=== PATIENT | male | born 1990 | race Caucasian/White ===

== ENCOUNTER 2020-01-12 12:34 | Emergency (ER) | payer MEDICAID ==
[~2020-01-12] VITALS: Ht 165.1 cm; Wt 68.2 kg
[2020-01-12 12:42] VITALS: BP 125/71
[2020-01-12] MEDS ORDERED: ketorolac trometh inj. 60 MG/2 ML VIAL IM ONE (13:25)
== END 2020-01-12 14:09 | disposition home or self-care (01) ==
LOC: ER 12:35
DX: M54.30 Sciatica, unspecified side (principal); M54.89 Other dorsalgia
CPT/HCPCS: 96372; 99283; J1885

== ENCOUNTER 2020-07-18 09:09 | Emergency (ER) | payer MEDICAID ==
[~2020-07-18] VITALS: Ht 167.6 cm; Wt 61.2 kg
[2020-07-18 09:22] VITALS: BP 122/74
[2020-07-18] MEDS ORDERED: ketorolac tromethamine 15mg/ml inj. IM ONE (09:45)
[2020-07-18] MEDS ORDERED: IBUP-1984 PO (09:45)
[2020-07-18] MEDS ORDERED: orphenadrine citrate 60mg/2ml inj. IM ONE (09:45)
== END 2020-07-18 09:59 | disposition home or self-care (01) ==
LOC: ER 09:10
DX: G89.29 Other chronic pain (principal); M54.5 Low back pain; Z79.899 Other long term (current) drug therapy
CPT/HCPCS: 96372; 99284; J1885; J2360

== ENCOUNTER 2020-10-26 13:50 | Emergency (ER) | payer MEDICAID ==
[~2020-10-26] VITALS: Ht 317.5 cm; Wt 59.1 kg
[2020-10-26 14:02] VITALS: BP 127/86
== END 2020-10-26 15:29 | disposition home or self-care (01) ==
LOC: ER 13:51
DX: U07.1 COVID-19 (principal); J02.9 Acute pharyngitis, unspecified; R06.02 Shortness of breath; R19.7 Diarrhea, unspecified; G89.29 Other chronic pain
CPT/HCPCS: 87635; 99283; C9803

== ENCOUNTER 2022-04-08 10:13 | Emergency (ER) | payer MEDICAID ==
[~2022-04-08] VITALS: Ht 165.1 cm; Wt 55.0 kg
[2022-04-08 10:22] VITALS: BP 132/90
[2022-04-08] MEDS ORDERED: ORPH100T2 PO (11:03)
[2022-04-08] MEDS ORDERED: ketorolac trometh inj. 60 MG/2 ML VIAL IM ONE (11:05)
[2022-04-08] MEDS ORDERED: orphenadrine citrate 60mg/2ml inj. IM ONE (11:05)
== END 2022-04-08 11:40 | disposition home or self-care (01) ==
LOC: ER 10:14
DX: S39.012A Strain of muscle, fascia and tendon of lower back, initial encounter (principal); M62.830 Muscle spasm of back; F17.200 Nicotine dependence, unspecified, uncomplicated; X58.XXXA Exposure to other specified factors, initial encounter; Y93.89 Activity, other specified; Y92.89 Other specified places as the place of occurrence of the external cause; Y99.8 Other external cause status
CPT/HCPCS: 96372; 99284; J1885; J2360